=== PATIENT | female | born 1985 | race Caucasian/White ===

== ENCOUNTER 2020-11-10 02:47 | Emergency (ER) | payer MEDICAID ==
[2020-11-10 02:59] VITALS: BP 156/103
--- NOTE | 2020-11-10 03:02 | ED Physician Documentation ---
PD HPI UPPER EXT INJURY - Stated complaint Stated Complaint: LT WRIST LAC - Chief complaint Chief Complaint: Laceration - History obtained from History obtained from: Patient - History of Present Illness Location: Left, Forearm Type of injury: Fall, Laceration (she states she had had some alcohol along with her friend, was dancing around while cutting up some food with a knife, and accidentally cut herself on left forearm. No FB.) Where injury occurred: Other (visiting [place] for few days vacation. Lives in [place].) Timing - onset: How many hours ago (1), Today Timing - details: Abrupt onset, Still present Worsened by: Palpating. No: Moving Associated symptoms: No: Weakness, Numbness, Tingling Similar symptoms before: Has not had sx before Review of Systems Constitutional: denies: Fever Nose: denies: Rhinorrhea / runny nose, Congestion Throat: denies: Sore throat Respiratory: denies: Cough Neurologic: denies: Focal weakness, Numbness PD PAST MEDICAL HISTORY - Past Medical History Past Medical History: No - Allergies Allergies/Adverse Reactions: Allergies Allergy/AdvReac Type Severity Reaction Status Date / Time Narcotics Allergy Hallucinati Uncoded 11/10/20 02:59 ons PD ED PE NORMAL - Vitals Vital signs reviewed: Yes - General General: Alert and oriented X 3, No acute distress, Well developed/nourished - Derm Derm: Normal color, Warm and dry - Extremities Extremities: Other (left forearm volar aspect with 2.4 cm laceration to fatty tissue without active bleeding now nor any FB. Normal sensation and movement distally. Edges are apart due to skin tension. ) - Neuro Neuro: Alert and oriented X 3, No motor deficit, No sensory deficit, Normal speech (mild slurring of speech c/w some alcohol intoxication. Steady gait and movement though. ) Results - Vitals Vitals: Vital Signs - 24 hr 11/10/20 02:48 Temperature 36.9 C Heart Rate 122 H Respiratory 18 Rate Blood Pressure 156/103 H O2 Saturation 97 Oxygen O2 Source Room air Procedures - Laceration (location) left volar forearm Length in cm: 2.4 Wound type: Linear, Into subcut fat, Clean Neurovascular status: Sensory intact, Motor intact, Vascular intact Tendon involvement: No: Tendon Injury Anesthesia: Lidocaine 2% with epi Wound Preparation: Irrigated copiously NS, To the base, FB identified. No: FB removed Skin layer closure: Nylon, Running, Size #-0 - enter number (4), Sutures - enter # (12) Other: Patient tolerated well, No complications, Neurovascular intact, Dressing applied, Tetanus UTD Complexity: Simple PD MEDICAL DECISION MAKING - ED course Complexity details: considered differential, d/w patient Departure - Departure Disposition: 01 Home, Self Care Clinical Impression: Forearm laceration Qualifiers: Encounter type: initial encounter Laterality: left Qualified Code(s): S51.812A - Laceration without foreign body of left forearm, initial encounter Condition: Stable Record reviewed to determine appropriate education?: Yes Instructions: ED Laceration Ext Sutr Stap Tape Comments: It is okay to wash and shower. Clean off the wound twice a day with soap and water, or peroxide and water. Apply some antibiotic ointment to it to keep it moist. Also to watch for signs of infection such as purulence, redness or increasing pain. Return to your primary care or the ER at the specified time for suture removal. Suture removal 8 to 10 days. Tylenol or ibuprofen as needed for pains. Normal activity with your hands and arm is okay. Discharge Date/Time: 11/10/20 03:39
[2020-11-10] MEDS ORDERED: LIDOCAINE 2%-EPI 1:100000 20 ML MDV SUBQ STA (03:05)
== END 2020-11-10 03:39 | disposition home or self-care (01) ==
LOC: ED 02:47
DX: S51.812A Laceration without foreign body of left forearm, initial encounter (principal); W26.0XXA Contact with knife, initial encounter; Y93.G1 Activity, food preparation and clean up
CPT/HCPCS: 12001; 99281; 99282